=== PATIENT | male | born 1995 | race Caucasian/White ===

== ENCOUNTER 2016-12-05 15:36 | Emergency (ER) | payer BC, OTHER ==
[2016-12-05 17:09] VITALS: BP 120/56
--- NOTE | 2016-12-05 17:21 | UC ---
Abdominal Pain Male HPI - History of Current Complaint Chief Complaint: UCAbdominalPain Stated Complaint: LEFT SIDE ABDOMINAL PAIN Time Seen by Provider: 12/05/16 17:14 Hx Obtained From: Patient Onset/Duration: Sudden Onset - LLQ pain around 1440 after eating at [employer]. Had bread., Resolved - after passing gas. Severity Initially: Moderate Severity Currently: Mild Location: Discrete At: LUQ Character: Cramping, Sharp Aggravating Factor(s):: Food Associated Signs And Symptoms: Positive: Diaphoresis - Allergies/Home Medications Allergies/Adverse Reactions: Allergies Allergy/AdvReac Type Severity Reaction Status Date / Time No Known Allergies Allergy Verified 12/05/16 17:09 Home Medications: Home Medications NK [No Home Medications Reported] 12/05/16 [History Confirmed 12/05/16] PMH/Surg Hx/FS Hx/Imm Hx Previously Healthy: Yes - Surgical History Surgical History: None - Family History Known Family History: Positive: Cardiac Disease, Hypertension Negative: Diabetes - Social History Occupation: Student Lives: With Family Alcohol Use: Weekly Substance Use Type: None Smoking Status (MU): Never Smoked Tobacco Review of Systems Gastrointestinal: Abdominal Pain All Other Systems Reviewed And Are Negative: Yes Physical Exam Triage Information Reviewed: Yes Appearance: Well-Appearing, No Pain Distress, Well-Nourished Vital Signs: Initial Vital Signs Temp 98.3 F 12/05/16 17:02 Pulse 65 12/05/16 17:02 Resp 16 12/05/16 17:02 BP 120/56 12/05/16 17:02 Pulse Ox 100 12/05/16 17:02 Vital Signs Reviewed: Yes Eyes: Positive: Conjunctiva Clear ENT Exam: Normal Dental Exam: Normal Neck exam: Normal Respiratory Exam: Normal Cardiovascular Exam: Normal Abdominal Exam: Normal Bowel Sounds: Positive: Present Musculoskeletal Exam: Normal Neurological Exam: Normal Psychological Exam: Normal Skin Exam: Normal Abd Pain Male Course/Dx - Differential Dx/Clinical Impression Differential Diagnosis/HQI/PQRI: Appendicitis, Bowel Obstruction, Diverticulitis Provider Diagnoses: Abdominal pain. Discharge - Discharge Plan Condition: Stable Disposition: HOME Patient Education Materials: Abdominal Pain (ED) Additional Instructions: STOP CHEATING WITH GLUTEN. [employer] beer is the best gluten free.
== END 2016-12-05 17:33 | disposition home or self-care (01) ==
LOC: UCCORT 15:36
DX: R10.32 Left lower quadrant pain (principal)
CPT/HCPCS: 99201; G0463